=== PATIENT | male | born 1980 | race Caucasian/White ===

== ENCOUNTER 2025-02-21 08:48 | Inpatient (IN) | payer OTHER ==
[~2025-02-21] VITALS: Ht 172.7 cm; Wt 77.3 kg
[2025-02-21 10:05] LABS: PLATELET COUNT (AUTO) 410 K/uL (150-450); RED BLOOD CELL COUNT(AUTO) 4.67 MIL/uL (4.50-5.90); RED CELL DISTRIBUTION WIDTH 14.0 % (11.5-14.5); WHITE BLOOD COUNT (AUTO) 7.5 K/uL (4.5-11.0)
[2025-02-21 10:07] LABS: COVID AG,FIA SOURCE NASAL SWAB
[2025-02-21 10:12] LABS: CALCIUM, TOTAL 9.2 mg/dL (8.8-10.5); CREATININE 0.73 mg/dL (0.60-1.30); GLOMERULAR FILTR. RATE CALC > 60 mL/min (>60); GLUCOSE,RANDOM 86 mg/dL (70-110); SODIUM SERUM 134 mmol/L (136-145); UREA NITROGEN, BLOOD 18 mg/dL (7-18)
[2025-02-21] MEDS ORDERED: ONDANSETRON HCL 4 MG/2 ML VIAL IVP PRN (11:00)
[2025-02-21] MEDS ORDERED: MAGNESIUM HYDROXIDE SUSPENSION 30 ML UDCUP PO PRN (11:00)
[2025-02-21 11:06] LABS: SARS-COV2 (COVID) ANTIGEN,FIA Negative (Negative)
[2025-02-21] MEDS: PANTOPRAZOLE SODIUM 40 MG/VIAL IVP SCH (11:23)
[2025-02-21] MEDS ORDERED: SODIUM CHLORIDE 0.9% 0 ML ONE (11:43)
[2025-02-21] MEDS: ACETAMINOPHEN 325 MG TABLET PO PRN (16:52)
[2025-02-21] MEDS ORDERED: LORazepam 2 MG/ML VIAL IM ONE (19:45)
[2025-02-21] MEDS: DOCUSATE SODIUM 100 MG CAPSULE PO SCH (21:00)
[2025-02-22 01:11] LABS: APPEARANCE,URINE CLEAR (CLEAR); GLUCOSE, URINE (UA) NEGATIVE (NEGATIVE); LEUKOCYTE ESTERASE ,URINE NEGATIVE (NEGATIVE); NITRATE,URINE NEGATIVE (NEGATIVE); OCCULT BLOOD,URINE NEGATIVE (NEGATIVE); PH,URINE DRUG SCREEN 5.5 (5.0-8.0); SPECIFIC GRAVITIY, URINE 1.006 (1.003-1.030)
[2025-02-22 01:16] LABS: ALCOHOL, URINE DRUG SCREEN NEGATIVE (NEGATIVE); AMPHET/METH SCREEN,URINE NEGATIVE (NEGATIVE); BARBITURATE SCREEN, URINE NEGATIVE (NEGATIVE); CANNABINOID SCREEN,URINE NEGATIVE (NEGATIVE); COCAINE SCREEN,URINE NEGATIVE (NEGATIVE); METHADONE SCREEN, URINE NEGATIVE (NEGATIVE)
[2025-02-22 01:23] VITALS: BP 114/82; PULSE 81; RESP 18; TEMP 97.7; O2SAT 100
[2025-02-22 04:00] VITALS: BP 94/64; PULSE 69; RESP 18; TEMP 98; O2SAT 100
[2025-02-22 09:25] VITALS: BP 113/79; PULSE 75; RESP 18; TEMP 98; O2SAT 100
[2025-02-22 20:00] VITALS: BP 118/86; PULSE 84; RESP 18; TEMP 98.2; O2SAT 97
[2025-02-23 04:00] VITALS: BP 110/73; PULSE 83; RESP 18; TEMP 97.5; O2SAT 98
[2025-02-23 07:49] VITALS: BP 109/78; PULSE 81; RESP 18; TEMP 97.9; O2SAT 100
[2025-02-23 20:38] VITALS: BP 125/96; PULSE 98; RESP 18; TEMP 97.9; O2SAT 99
[2025-02-24 08:00] VITALS: BP 118/80; PULSE 110; RESP 20; TEMP 98.1; O2SAT 100
[2025-02-24] MEDS: PANTOPRAZOLE SODIUM 40 MG DR TABLET PO SCH (13:36)
[2025-02-24 20:42] VITALS: BP 118/85; PULSE 101; RESP 18; TEMP 97.5; O2SAT 99
[2025-02-25 09:13] VITALS: BP 93/68; PULSE 83; RESP 18; TEMP 97.7; O2SAT 100
[2025-02-25 14:09] LABS: PLATELET COUNT (AUTO) 381 K/uL (150-450); RED BLOOD CELL COUNT(AUTO) 4.55 MIL/uL (4.50-5.90); RED CELL DISTRIBUTION WIDTH 14.3 % (11.5-14.5); WHITE BLOOD COUNT (AUTO) 6.9 K/uL (4.5-11.0)
[2025-02-25 14:19] LABS: CALCIUM, TOTAL 8.7 mg/dL (8.8-10.5); CREATININE 0.88 mg/dL (0.60-1.30); GLOMERULAR FILTR. RATE CALC > 60 mL/min (>60); GLUCOSE,RANDOM 101 mg/dL (70-110); SODIUM SERUM 138 mmol/L (136-145); UREA NITROGEN, BLOOD 7 mg/dL (7-18)
[2025-02-25 20:00] VITALS: BP 126/89; PULSE 94; RESP 20; TEMP 99.1; O2SAT 95
[2025-02-26 04:50] VITALS: BP 102/76; PULSE 98; RESP 18; TEMP 98.1; O2SAT 100
[2025-02-26 09:00] VITALS: BP 117/82; PULSE 104; RESP 18; TEMP 97.7; O2SAT 99
[2025-02-26 11:55] VITALS: BP 107/87; PULSE 100; RESP 18; O2SAT 98
[2025-02-26 20:25] VITALS: BP 125/84; PULSE 100; RESP 18; TEMP 98.1; O2SAT 100
[2025-02-27 04:36] VITALS: BP 103/68; PULSE 97; RESP 18; TEMP 97.7; O2SAT 97
[2025-02-27 09:18] VITALS: BP 106/77; PULSE 84; RESP 18; TEMP 97.7; O2SAT 100
[2025-02-27] MEDS ORDERED: LORazepam 2 MG/ML VIAL IM ONE (09:30)
[2025-02-27 20:00] VITALS: BP 109/77; PULSE 87; RESP 18; TEMP 98.1; O2SAT 100
[2025-02-27 21:37] LABS: TROPONIN I-HIGH SENSITIVITY 4 ng/L (<76)
[2025-02-28 04:00] VITALS: BP 107/75; PULSE 88; RESP 18; TEMP 98; O2SAT 100
[2025-02-28 08:43] VITALS: BP 103/66; PULSE 94; RESP 18; TEMP 98.1; O2SAT 98
[2025-02-28] MEDS: PEG 3350/NA SULF,BICARB,CL/KCL 4000 ML SOLUTION PO ONE (13:07)
[2025-02-28] MEDS ORDERED: DOCU100C33 PO (15:17)
[2025-02-28] MEDS ORDERED: PANT-31 PO (15:17)
[2025-02-28] MEDS ORDERED: QUET200T PO (15:18)
[2025-02-28] MEDS ORDERED: QUET100T PO (15:20)
[2025-02-28] MEDS ORDERED: TRAZ-186 PO (15:20)
[2025-02-28] MEDS ORDERED: ACET650S24 PR (15:23)
[2025-02-28] MEDS ORDERED: MAGN-169 PO (15:24)
== END 2025-02-28 15:55 | DRG 394 ==
LOC: EMS 08:50 → EDH 11:00 → 6S 02-22 01:12
PROVIDERS: ADMIT Internal Medicine; ATTEND Internal Medicine
PROC: GZ52ZZZ Individual Psychotherapy, Cognitive (ICD-10-PCS; principal; 2025-02-27)
DX: T18.9XXA Foreign body of alimentary tract, part unspecified, initial encounter (principal); Z59.00 Homelessness unspecified; T14.91XA Suicide attempt, initial encounter; G47.00 Insomnia, unspecified; F12.10 Cannabis abuse, uncomplicated; F25.1 Schizoaffective disorder, depressive type; F15.10 Other stimulant abuse, uncomplicated; Z20.822 Contact with and (suspected) exposure to COVID-19; W44.E9XA Other non-magnetic metal objects entering into or through a natural orifice, initial encounter; Z78.1 Physical restraint status; Z79.899 Other long term (current) drug therapy; Z87.891 Personal history of nicotine dependence; Z88.0 Allergy status to penicillin; Z91.199 Patient's noncompliance with other medical treatment and regimen due to unspecified reason; Z91.51 Personal history of suicidal behavior; Z91.52 Personal history of nonsuicidal self-harm; Y93.89 Activity, other specified; Y92.89 Other specified places as the place of occurrence of the external cause; Y99.8 Other external cause status
CPT/HCPCS: 71045; 74018; 80048; 80307; 81003; 84484; 85025; 96374; 99285; G0378; G0480; J2470; J7030; 36415-L1; 36415-TC

== ENCOUNTER → 2025-03-04 | Emergency (ER) | payer OTHER ==
[~2025-03-04] VITALS: Ht 172.7 cm; Wt 77.0 kg
[~2025-03-04] MED LIST: 0.9% SODIUM CHLORIDE 10 ML SYRINGE IVP ONE; ACET-2247 PO; ACET650S24 PR; DOCU100C33 PO; IOHEXOL 350 MG/ML 100 ML VIAL ONE; MAGN-169 PO; PANT-31 PO; QUET100T PO; QUET200T PO; SODIUM CHLORIDE 0.9% 100 ML ONE; TRAZ-186 PO
[2025-03-04 10:26] VITALS: TEMP 98.1
[2025-03-04 10:55] LABS: PLATELET COUNT (AUTO) 304 K/uL (150-450); RED BLOOD CELL COUNT(AUTO) 4.14 MIL/uL (4.50-5.90); RED CELL DISTRIBUTION WIDTH 14.4 % (11.5-14.5); WHITE BLOOD COUNT (AUTO) 9.9 K/uL (4.5-11.0)
[2025-03-04 10:58] LABS: CALCIUM, TOTAL 8.7 mg/dL (8.8-10.5); CREATININE 0.82 mg/dL (0.60-1.30); GLOMERULAR FILTR. RATE CALC > 60 mL/min (>60); GLUCOSE,RANDOM 89 mg/dL (70-110); SODIUM SERUM 135 mmol/L (136-145); UREA NITROGEN, BLOOD 22 mg/dL (7-18)
[2025-03-04 11:02] LABS: ASPARTATE AMINOTRANSFERASE 25 U/L (15-37); CREATINE KINASE, TOTAL ONLY 142 U/L (39-308); TOTAL PROTEIN, SERUM 8.5 g/dL (6.4-8.2)
[2025-03-04 11:09] LABS: TROPONIN I-HIGH SENSITIVITY Less Than 4 ng/L (<76)
[2025-03-04] MEDS: ACETAMINOPHEN 500 MG TABLET PO ONE (11:24)
[2025-03-04] MEDS: KETOROLAC TROMETHAMINE 30 MG/ML VIAL IVP ONE (11:43)
[2025-03-04] MEDS: ONDANSETRON HCL 4 MG/2 ML VIAL IVP ONE (11:43)
[2025-03-04] MEDS: VANCOMYCIN 1.25 GM/WATER(PEG) 250 ML IV ONE (11:44)
[2025-03-04] MEDS: BACITRACIN 0.9 GM PACKET OINTMENT TP ONE (11:44)
[2025-03-04] MEDS: FAMOTIDINE 20 MG/2 ML VIAL IVP ONE (11:44)
[2025-03-04 12:30] LABS: APPEARANCE,URINE CLEAR (CLEAR); GLUCOSE, URINE (UA) NEGATIVE (NEGATIVE); LEUKOCYTE ESTERASE ,URINE NEGATIVE (NEGATIVE); NITRATE,URINE NEGATIVE (NEGATIVE); OCCULT BLOOD,URINE NEGATIVE (NEGATIVE); SPECIFIC GRAVITIY, URINE 1.023 (1.003-1.030)
[2025-03-04] MEDS: MORPHINE SULFATE 2 MG/ML SYRINGE IVP ONE (14:52)
[2025-03-04 15:22] VITALS: BP 113/77; PULSE 91; RESP 18; O2SAT 98
== END | disposition short-term general hospital (02) ==
LOC: EMS 10:18
DX: T18.2XXA Foreign body in stomach, initial encounter (principal); R07.89 Other chest pain; L08.9 Local infection of the skin and subcutaneous tissue, unspecified; F17.210 Nicotine dependence, cigarettes, uncomplicated; F15.90 Other stimulant use, unspecified, uncomplicated; Z79.899 Other long term (current) drug therapy; Z88.0 Allergy status to penicillin; W44.9XXA Unspecified foreign body entering into or through a natural orifice, initial encounter; Y93.89 Activity, other specified; Y92.89 Other specified places as the place of occurrence of the external cause; Y99.8 Other external cause status
CPT/HCPCS: 99285; 70450; 96365; 96375; 71045; 96366; 80048; 80076; 81003; 82550; 83690; 83880; 84484; 85025; 85610; 85730; 36415; 74018; 71260; 72193; 74160; 93005; J1885; Q9967; J3490 ×2; J2270; J2405; J7050